=== PATIENT | female | born 1940 | race Caucasian/White ===

== ENCOUNTER → 2017-01-25 | Day surgery (SDC) | payer MEDICARE ==
[~2017-01-25] VITALS: Ht 165.1 cm; Wt 65.8 kg
[~2017-01-25] MED LIST: 0.9% Sodium Chloride 1,000 ML IV PRN; ASPI-973 PO; CALC600T12 PO; CHOL100043 PO; Sodium Chloride LOK Flush 10 mL Syringe IV PRN; fentaNYL-PF 50 mCg/mL 2 mL Inj IVPUSH PRN
[2017-01-25 10:02] VITALS: BP 134/80; PULSE 68; RESP 16; O2SAT 99
[2017-01-25 10:42] VITALS: BP 115/72; PULSE 74; RESP 14; O2SAT 100
[2017-01-25 10:55] VITALS: BP 118/69; PULSE 69; RESP 14; O2SAT 99
[2017-01-25 11:03] VITALS: BP 122/75; PULSE 71; RESP 12; O2SAT 100
--- NOTE | 2017-01-25 23:09 | ENDO ---
[address] [address] ENDOSCOPY PROCEDURE PATIENT: ANNA COFFEY : 1940 MR#: [id number] ADMIT: 01/25/2017 JOB ID: [id number] DATE OF PROCEDURE: 01/25/2017 PROCEDURE: Colonoscopy. INDICATION: Screening. Patient's ASA classification is I. Mallampati score is 2. MEDICATIONS: 1. Versed 5 mg. 2. Fentanyl 100 mcg. INSTRUMENT USED: PCF-H180AL. PREPARATION QUALITY: Was good. PROCEDURE DETAILS: After informed consent was obtained, the patient was brought to the GI suite, where she was placed on oxygen via nasal cannula and monitored with continuous pulse oximeter, telemetry, and blood pressure monitoring. A time-out was performed. Then, she was placed in the left lateral decubitus position and medications were administered for sedation. Digital rectal exam was performed which was unremarkable. The colonoscope was then inserted into the rectum and advanced under direct visualization to the cecum, which was identified by the presence of the ileocecal valve and appendiceal orifice. Once the cecum was reached, the colonoscope was withdrawn back into the rectum as mucosa and lumen were examined. In the rectum, retroflexion was performed. Following retroflexion, remaining air in the rectum was suctioned and procedure was completed. FINDINGS: Normal exam from rectum to cecum. IMPRESSION: Normal colonoscopy. RECOMMENDATIONS: Repeat colonoscopy in 10 years, sooner if symptoms. COMPLICATIONS: None. ESTIMATED BLOOD LOSS: Zero.
== END | disposition home or self-care (01) ==
LOC: END 00:02
PROVIDERS: ATTEND Internal Medicine Gastroenterology
DX: Z12.11 Encounter for screening for malignant neoplasm of colon (principal)
CPT/HCPCS: G0121; G0500; J2250; J3010; J7030